=== PATIENT | male | born 1990 | race Two or more races ===

== ENCOUNTER 2021-09-08 20:44 | Emergency (ER) | payer OTHER ==
[~2021-09-08] VITALS: Ht 182.9 cm; Wt 88.5 kg
[2021-09-08] MEDS ORDERED: NIX59 M1 TOP (21:33)
== END 2021-09-08 23:33 | disposition home or self-care (01) ==
LOC: ER 20:44
DX: Z20.89 Contact with and (suspected) exposure to other communicable diseases (principal); Z03.818 Encounter for observation for suspected exposure to other biological agents ruled out